=== PATIENT | female | born 1955 ===

== ENCOUNTER 2018-12-26 10:05 | Outpatient (CLI) | payer OTHER ==
[~2018-12-26] VITALS: Ht 160 cm; Wt 71.2 kg
[~2018-12-26 10:05] MED LIST: CALCIUM CITRAT250 M1 PO; IRON325 M2 PO; LEVOTHYROXINE150 MCG ORAL
--- NOTE | 2018-12-26 11:04 | GI Initial Consult Note ---
History of Present Illness General Date patient seen: Dec 26, 2018 Time patient seen: 11:00 Referring physician: HMO Reason for Consultation: Abdominal pain, history of gastric bypass Present Illness HPI This is a 63-year-old female patient, history of gastric bypass surgery back in 2008 and revision in May 2018. The patient presents today with complaint of occasional epigastric pain, chronic cough, recent diarrhea which she described as soft stools, vomiting and abdominal bloating. The patient's last colonoscopy was approximately 10 years ago. The patient states she is scheduled next Tuesday for repeat colonoscopy. The patient was referred by her surgeon to have a upper endoscopy to evaluate the gastric bypass revision. Denies any unintentional weight loss or changes in dietary habits. No signs of abuse or neglect. Patient is not fall risk. Home Meds Reported Medications Calcium Citrate (CALCIUM CITRATE) 250 Mg Tablet, PO DAILY, TAB 07/20/16 Ferrous Sulfate (IRON) 325 Mg Capsule.er, PO DAILY, CAP 07/20/16 Levothyroxine Sodium* (LEVOTHYROXINE SODIUM*) 150 Mcg Tablet, 150 MCG ORAL DAILY , TAB Take in the morning on an empty stomach, at least 30 minutes before food. 07/20/16 Med list reviewed/reconciled: Yes Allergies: Coded Allergies: ERYTHROMYCIN BASE (Verified Allergy, Unknown, 07/15/16) Patient History History Provided By: Patient, Medical Record [facility] Narrative Hypothyroidism Hemorrhoids Past surgical history Gastric bypass 2009 Gastric bypass revision 2018 in May Breast reduction Tonsillectomy Right rotator cuff Social History: Reports: smoking, alcohol use, other - caffiene use Review of Systems All Other Systems: negative except mentioned in HPI Physical Exam Temperature 98.6 Blood pressure 111/60 Pulse is 58 90% room air Height is 5 3 Weight 157.9 pounds Sp02 EP Interpretation: reviewed, normal General Appearance: well appearing, no apparent distress, alert Head: normocephalic EENT: PERRL/EOMI, normal ENT inspection Neck: supple Respiratory: normal breath sounds, no respiratory distress Cardiovascular: normal rate Gastrointestinal: normal inspection, non tender, soft, normal bowel sounds, non -distended Rectal: deferred Genitourinary: no CVA tenderness Musculoskeletal: normal inspection, back normal Neurologic: normal inspection, alert, oriented x3, responsive Psychiatric: normal inspection, judgement/insight normal, memory normal Skin: normal inspection, normal color, no rash, warm/dry, palpation normal, well hydrated Lymphatic: normal inspection, no adenopathy GI: Plan Problems: (1) H/O gastric bypass (2) Hypothyroidism (3) Hemorrhoids (4) GERD (gastroesophageal reflux disease) (5) Nausea & vomiting (6) Abdominal bloating (7) Abdominal pain (8) Encounter for diagnostic endoscopy Plan EGD to be scheduled pending PA, will contact patient. - NPO @ MD day prior procedure explained. Will follow with additional recs post procedure. Seen with Dr. Ruby. Thank you for this patient referral. The patient was seen and examined at bedside and all new and available data was reviewed in the patients chart. I agree with the above findings, impression and plan. (Patient seen earlier today. Signature stamp does not reflect patient encounter time.). - MD Nan Rios,[facility]ATARZY[facility] Dec 26, 2018 11:04
[2018-12-26 12:34] VITALS: BP 111/60
== END 2018-12-26 10:35 | disposition home or self-care (01) ==
LOC: PAN 10:05
DX: R10.13 Epigastric pain (principal); R05 Cough; R19.7 Diarrhea, unspecified; Z88.1 Allergy status to other antibiotic agents; E03.9 Hypothyroidism, unspecified; Z98.84 Bariatric surgery status; K64.9 Unspecified hemorrhoids; K21.9 Gastro-esophageal reflux disease without esophagitis; R11.2 Nausea with vomiting, unspecified; R14.0 Abdominal distension (gaseous)
CPT/HCPCS: 99202

== ENCOUNTER 2019-04-10 08:54 | Outpatient (CLI) | payer OTHER ==
--- NOTE | 2019-04-10 09:38 | General Progress Note ---
Assessment/Plan Problem List: (1) H/O gastric bypass ICD Codes: Z98.84 - Bariatric surgery status SNOMED: 235641866 (2) Nausea & vomiting ICD Codes: R11.2 - Nausea with vomiting, unspecified SNOMED: 65201321 (3) Hemorrhoids ICD Codes: K64.9 - Unspecified hemorrhoids SNOMED: 36107591 (4) Abdominal pain ICD Codes: R10.9 - Unspecified abdominal pain SNOMED: 17896446 (5) GERD (gastroesophageal reflux disease) ICD Codes: K21.9 - Gastro-esophageal reflux disease without esophagitis SNOMED: 690953931 (6) Hypothyroidism ICD Codes: E03.9 - Hypothyroidism, unspecified SNOMED: 49739145 Assessment/Plan: s/p EGD her symptoms has resolved EGd results reviewed with the patient RTC prn Subjective ROS Limited/Unobtainable: Yes Allergies: Coded Allergies: ERYTHROMYCIN BASE (Verified Allergy, Unknown, 07/15/16) Objective General Appearance: alert EENT: normal ENT inspection Neck: supple Cardiovascular: normal rate Respiratory/Chest: lungs clear Abdomen: normal bowel sounds, non tender, soft Extremities: non-tender Jerman Ruby MD April 10, 2019 09:38
[2019-04-10] MEDS ORDERED: VITAMIN D400 INTLU ORAL (16:08)
[2019-04-10 16:09] VITALS: BP 107/66
== END 2019-04-10 12:00 | disposition home or self-care (01) ==
LOC: PAN 08:54
DX: R11.2 Nausea with vomiting, unspecified (principal); Z98.84 Bariatric surgery status; K64.9 Unspecified hemorrhoids; R10.9 Unspecified abdominal pain; K21.9 Gastro-esophageal reflux disease without esophagitis; E03.9 Hypothyroidism, unspecified; Z88.8 Allergy status to other drugs, medicaments and biological substances